=== PATIENT | female | born 1975 | race African-American/Black ===

== ENCOUNTER 2021-12-01 03:26 | Emergency (ER) | payer MEDICAID ==
[~2021-12-01] VITALS: Ht 160 cm; Wt 79.5 kg
[2021-12-01 03:51] LABS: BASO % 0.4 % (0.0-2.0); GRAN # 5.7 K/mm3 (1.4-6.5); GRAN % 75.6 % (42.2-75.2); LYMPH # 1.4 K/mm3 (1.2-3.4); LYMPH % 18.3 % (20.0-51.0); MEAN CELL VOLUME 71 fl (80.0-100.0); MEAN CORPUSCULAR HEMOGLOBIN 24 pg (27-31); MEAN CORPUSCULAR HGB CONC 33 g/dl (33.0-37.0); MEAN PLATELET VOLUME 10.4 fl (7.4-10.4); MONO # 0.4 K/mm3 (0.1-0.6); MONO % 5.4 % (1.7-9.3); PLATELET COUNT 395 K/mm3 (130-400); RED BLOOD COUNT 5.48 M/mm3 (4.10-5.30); REDCELL DISTRIBUTION WIDTH-CV 17.5 % (11.5-14.5)
[2021-12-01 04:25] LABS: ALANINE AMINOTRANSFERASE 28 U/L (0-55); ALBUMIN 3.9 gm/dL (3.5-5.0); ALCOHOL(ethanol),MEDICAL < 10 mg/dL (0-10); ALKALINE PHOSPHATASE 155 U/L (40-150); ANION GAP 21 mmol/L (7-16); AST,SGOT 23 U/L (5-34); BILIRUBIN,TOTAL 0.6 mg/dL (0.2-1.2); BLOOD UREA NITROGEN 15 mg/dL (7-19); CALCIUM 10.1 mg/dL (8.4-10.2); CARBON DIOXIDE 18 mmol/L (22-29); CHLORIDE 97 mmol/L (98-107); GLUCOSE 389 mg/dL (70-99); LIPASE 6 U/L (8-78); POTASSIUM 3.8 mmol/L (3.5-4.5); SODIUM 136 mmol/L (136-145)
[2021-12-01 04:35] LABS: CREATININE, serum 1.17 mg/dL (0.57-1.11)
[2021-12-01] MEDS ORDERED: PERCOCET 325 MG1 TA2 PO (07:29)
[2021-12-01] MEDS ORDERED: ZOFRAN ODT4 MG PO (07:29)
[2021-12-01 08:10] VITALS: BP 122/88; PULSE 113; TEMP 97.5
== END 2021-12-01 08:10 | disposition home or self-care (01) ==
LOC: COL.ER 03:26
PROVIDERS: Personal Emergency Response Attendant
DX: R19.07 Generalized intra-abdominal and pelvic swelling, mass and lump (principal); R11.10 Vomiting, unspecified; Z32.02 Encounter for pregnancy test, result negative
CPT/HCPCS: J1790; J2060; J2270; J2405; J7030; Q9967

== ENCOUNTER 2022-05-13 02:21 | Inpatient (IN) | payer MEDICAID ==
[~2022-05-13] VITALS: Wt 81.6 kg
[2022-05-13] VITALS (911 sets, daily range): BP systolic 119–145; BP diastolic 78–100; PULSE 108–122; TEMP 97.9–99; O2SAT 72–100
[~2022-05-13 02:21] MED LIST: PERCOCET 325 MG1 TA2 PO; ZOFRAN ODT4 MG PO
[2022-05-13 02:52] LABS: COLLECTION METHOD CLEAN CATCH
[2022-05-13 02:55] LABS: BASO # 0.1 K/mm3 (0.0-0.2); BASO % 0.4 % (0.0-2.0); GRAN # 10.2 K/mm3 (1.4-6.5); GRAN % 87.7 % (42.2-75.2); HEMATOCRIT 40.4 % (37.0-47.0); HEMOGLOBIN 12.8 g/dl (12.5-16.0); LYMPH % 8.7 % (20.0-51.0); MEAN CELL VOLUME 78 fl (80.0-100.0); MEAN CORPUSCULAR HEMOGLOBIN 25 pg (27-31); MEAN CORPUSCULAR HGB CONC 32 g/dl (33.0-37.0); MEAN PLATELET VOLUME 10.8 fl (7.4-10.4); MONO # 0.3 K/mm3 (0.1-0.6); MONO % 2.9 % (1.7-9.3); PLATELET COUNT 395 K/mm3 (130-400); RED BLOOD COUNT 5.17 M/mm3 (4.10-5.30); REDCELL DISTRIBUTION WIDTH-CV 17.6 % (11.5-14.5)
[2022-05-13 03:04] LABS: MUCOUS Present (NOT PRESENT); URINE APPEARANCE Hazy (CLEAR/HAZY); URINE BACTERIA Rare /hpf (NONE SEEN); URINE COLOR Yellow (YELLOW)
[2022-05-13 03:05] LABS: URINE BLOOD TRACE-LYSED (NEGATIVE); URINE GLUCOSE 2+ (NEGATIVE); URINE KETONE 4+ (NEGATIVE); URINE NITRATE Negative (NEGATIVE); URINE PROTEIN(semi-quant) Negative (NEGATIVE); URINE UROBILINOGEN 0.2 (NEGATIVE)
[2022-05-13 03:16] LABS: ACETONE,SERUM MODERATE; ALANINE AMINOTRANSFERASE 21 U/L (0-55); ALBUMIN 4.2 gm/dL (3.5-5.0); ALKALINE PHOSPHATASE 167 U/L (40-150); ANION GAP 29 mmol/L (7-16); AST,SGOT 16 U/L (5-34); BILIRUBIN,TOTAL 0.4 mg/dL (0.2-1.2); BLOOD UREA NITROGEN 17 mg/dL (7-19); CALCIUM 10.8 mg/dL (8.4-10.2); CHLORIDE 94 mmol/L (98-107); CREATININE, serum 1.49 mg/dL (0.57-1.11); POTASSIUM 4.8 mmol/L (3.5-4.5); SODIUM 133 mmol/L (136-145); TOTAL PROTEIN 9.6 gm/dL (6.2-8.1)
[2022-05-13 03:17] LABS: CARBON DIOXIDE 10 mmol/L (22-29); GLUCOSE 604 mg/dL (70-99)
[2022-05-13 04:02] LABS: LIPASE 6 U/L (8-78)
[2022-05-13] MEDS ORDERED: NORCO 325 MG-51 TAB PO (05:23)
[2022-05-13] MEDS ORDERED: ASPIRIN 81M81 MG/TA2 PO (05:23)
[2022-05-13] MEDS ORDERED: MASON NATURAL2000 IU PO (05:23)
[2022-05-13] MEDS ORDERED: DULOXETINE HCL40 MG PO (05:24)
[2022-05-13] MEDS ORDERED: PRINIVIL5 MG PO (05:24)
[2022-05-13] MEDS ORDERED: PAMELOR75 MG PO (05:24)
[2022-05-13] MEDS ORDERED: ZOCOR 40MG40 MG PO (05:24)
[2022-05-13] MEDS ORDERED: LYRICA200 MG PO (05:24)
[2022-05-13] MEDS ORDERED: COMPLETE MULTI1 TAB PO (05:25)
[2022-05-13] MEDS ORDERED: HUMALOG100 U/ML SQ (05:26)
[2022-05-13] MEDS ORDERED: LEVEMIR FLEX100 U/ML SQ (05:26)
[2022-05-13] MEDS ORDERED: LUNESTA3 MG PO (05:29)
--- NOTE | 2022-05-13 06:00 | NUR ---
PT ARRIVED FROM ER VIA STRETCHER. AMBULATED TO ICU BED, CONNECTED TO MONITORING. INSULIN CURRENTLY INFUSING AT A RATE OF 3UN/HR FROM ER, AND NS C 20KCL AT 250ML/HR. PT AAOX4, C/O HEADACHE AND ASKING FOR LIGHTS TO BE DIMMED. REPORTS NAUSEA, WILL CALL PHARMACY FOR PHENERGAN PER ORDER. ORIENTED TO ROOM AND CALL LIGHT, ASKED TO CALL RN BEFORE GETTING OOB. WILL CONTINUE TO MONITOR.
[2022-05-13 06:18] LABS: CALCIUM 9.8 mg/dL (8.4-10.2); CREATININE, serum 1.19 mg/dL (0.57-1.11); MAGNESIUM 1.9 mg/dL (1.6-2.6); PHOSPHOROUS 3.7 mg/dL (2.3-4.7); POTASSIUM 4.5 mmol/L (3.5-4.5)
[2022-05-13 08:16] LABS: CREATININE, serum 1.07 mg/dL (0.57-1.11); POTASSIUM 5.2 mmol/L (3.5-4.5)
[2022-05-13 09:59] LABS: CALCIUM 8.7 mg/dL (8.4-10.2); CREATININE, serum 0.93 mg/dL (0.57-1.11); POTASSIUM 4.7 mmol/L (3.5-4.5)
--- NOTE | 2022-05-13 11:04 | NUR ---
NOTIFIED HOSPITALIST OF PT FLUID ORDERS W/ K AND PT HIGH K LEVELS. ORDER FOR D5 1/2 NS GIVEN. PT ALSO COMPLAINS OF HEARTBURN. ORDER FOR MAALOX. CONSULT TO [facility] CALLED.
[2022-05-13 11:50] LABS: CALCIUM 8.6 mg/dL (8.4-10.2); CREATININE, serum 0.88 mg/dL (0.57-1.11); POTASSIUM 4.4 mmol/L (3.5-4.5)
--- NOTE | 2022-05-13 13:40 | NUR ---
Initial visit; Patient and her thanked [employer]immer for looking in on [place] and offering encouragement, comfort and prayer. Patient thanked [employer] for visit and for keeping her in her prayers. [employer] Trimmer will follow-up while patient is here.
[2022-05-13 14:14] LABS: CALCIUM 8.5 mg/dL (8.4-10.2); CREATININE, serum 0.84 mg/dL (0.57-1.11); POTASSIUM 3.9 mmol/L (3.5-4.5)
[2022-05-13 15:50] LABS: CALCIUM 8.7 mg/dL (8.4-10.2); CREATININE, serum 0.83 mg/dL (0.57-1.11); POTASSIUM 3.6 mmol/L (3.5-4.5)
--- NOTE | 2022-05-13 16:40 | NUR ---
forest nursery worker met with patient and her fiance to discuss discharge planning. Patient states she lives with her fiance and will return home upon discharge. Patient states her primary care provider is Dr Ortiz. Patient states her [employer] sensor is costing her $38.00 every two weeks and she cannot afford this. Worker will explore options for financial assistance for sensor. Patient stated that she does not have advance directives and is interested in seeing the documents which elementary school social worker will provide. Patient states that she is in the process of applying for disability. Patient currently has [email or web address].
[2022-05-13 20:36] LABS: CALCIUM 7.6 mg/dL (8.4-10.2); CREATININE, serum 0.71 mg/dL (0.57-1.11); MAGNESIUM 1.5 mg/dL (1.6-2.6); PHOSPHOROUS 1.3 mg/dL (2.3-4.7); POTASSIUM 4.1 mmol/L (3.5-4.5)
--- NOTE | 2022-05-13 22:00 | NUR ---
BEDSIDE SHIFT REPORT RECEIVED FROM [facility]. PT CURRENTLY RESTING IN BED. NO CURRENT C/O PAIN OR DISCOMFORT. VSS. NO ACUTE CHANGES NOTED AT THIS TIME
[2022-05-14] VITALS (801 sets, daily range): BP systolic 101–162; BP diastolic 53–96; PULSE 92–121; TEMP 97.5–98.9; O2SAT 93–100
--- NOTE | 2022-05-14 07:00 | NUR ---
PT RESTING IN BED. PT HAS NS RUNNING. PT'S VSS. PT HAS CALL LIGHT WITHIN REACH AND INSTRUCTED TO CALL WITH ALL NEEDS. PT INSTRUCTED ON NPO STATUS FOR EGD LATER TODAY.
[2022-05-14 08:04] LABS: BASO % 0.4 % (0.0-2.0); EOS % 0.9 % (0.0-4.0); GRAN % 65.1 % (42.2-75.2); HEMATOCRIT 31.9 % (37.0-47.0); HEMOGLOBIN 10.3 g/dl (12.5-16.0); LYMPH # 1.2 K/mm3 (1.2-3.4); LYMPH % 24.8 % (20.0-51.0); MEAN CELL VOLUME 75 fl (80.0-100.0); MEAN CORPUSCULAR HEMOGLOBIN 24 pg (27-31); MEAN CORPUSCULAR HGB CONC 32 g/dl (33.0-37.0); MEAN PLATELET VOLUME 10.1 fl (7.4-10.4); MONO # 0.4 K/mm3 (0.1-0.6); MONO % 8.8 % (1.7-9.3); PLATELET COUNT 254 K/mm3 (130-400); RED BLOOD COUNT 4.23 M/mm3 (4.10-5.30); REDCELL DISTRIBUTION WIDTH-CV 16.5 % (11.5-14.5)
[2022-05-14 08:17] LABS: CALCIUM 8.3 mg/dL (8.4-10.2); CREATININE, serum 0.69 mg/dL (0.57-1.11); MAGNESIUM 1.7 mg/dL (1.6-2.6); POTASSIUM 3.7 mmol/L (3.5-4.5)
--- NOTE | 2022-05-14 09:46 | NUR ---
REFERAL PAPERWORK FAXED TO [phone].
--- NOTE | 2022-05-14 14:45 | NUR ---
Pt taken down to endoscopy.
--- NOTE | 2022-05-14 15:15 | NUR ---
REPORT CALLED TO [facility]. ALL QUESITONS ANSWERED. BELONGINGS MOVED TO 323. ENDO CALLED TO TRANSFER PT.
--- NOTE | 2022-05-14 15:30 | NUR ---
PATIENT ARRIVED FROM PACU AFTER EGD. AWAKE ALERT AND ORIENTED. VITALS STABLE.
--- NOTE | 2022-05-14 16:15 | NUR ---
PATIENT GAG REFLEX INTACT, TOELRATING PO INTAKE AT THIS TIME.
--- NOTE | 2022-05-14 20:30 | NUR ---
PT WANTS TO SHOWER, WRAPPED PICC LINE WITH BAG AND FOAM TAPE.
--- NOTE | 2022-05-14 21:22 | NUR ---
PT REPORTS NAUSEA, MEDICATED WITH PHENERGAN IVPB AT THIS TIME. PT HAS PICC TO POOJA, FLUSHES WELL, IVF INFUSING WITHOUT PROBLEM. IS ALERT AND ORIENTED X4. HAS DINNER TRAY THAT SHE IS TRYING TO EAT.
--- NOTE | 2022-05-14 22:04 | NUR ---
PT TAKES HS MEDS INCLUDING NORCO FOR ABD PAIN.
--- NOTE | 2022-05-15 00:07 | NUR ---
MARIANA GIVEN FOR SLEEP. PT ON HER PHONE.
--- NOTE | 2022-05-15 00:43 | NUR ---
PT ATE A SANDWICH, NOW ASKING FOR ZOFRAN. MEDICATED WITH ZOFRAN 4MG IVP AT THIS TIME. PT STILL ON HER PHONE.
[2022-05-15 03:41] VITALS: BP 124/85; PULSE 97
--- NOTE | 2022-05-15 04:00 | NUR ---
PT RESTING QUIETLY. PQ=[id number], 6UNITS NOVOLOG GIVEN.
[2022-05-15 06:56] LABS: CALCIUM 8.2 mg/dL (8.4-10.2); CREATININE, serum 0.7 mg/dL (0.57-1.11); MAGNESIUM 1.7 mg/dL (1.6-2.6); POTASSIUM 3.2 mmol/L (3.5-4.5)
--- NOTE | 2022-05-15 07:54 | NUR ---
PT RESTING, NO NEEDS AT THIS TIME
[2022-05-15 08:00] VITALS: BP 109/52; PULSE 101; TEMP 98.4
[2022-05-15 11:40] VITALS: BP 118/68; PULSE 105; TEMP 98.5
[2022-05-15] MEDS ORDERED: ZOFRAN ODT4 MG PO (11:57)
[2022-05-15] MEDS ORDERED: PROTONIX 40MG T40 MG PO (11:57)
--- NOTE | 2022-05-15 13:35 | NUR ---
DC'D RIGHT UPPER ARM PICC PER ORDERS, SEE CHARTING. PRIMARY NURSE NOTIFIED.
--- NOTE | 2022-05-15 14:20 | NUR ---
DISCHARGED DISCUSSED WITH PT, ALL QUESTIONS AND CONCERNS WERE ADDRESSED, PT WALKED OUT WITH PCT AND FAMILY WITH ALL HER BELONGINGS TO PRIVATE VEHICLE HOME
== END 2022-05-15 14:26 | disposition home or self-care (01) | DRG 638 ==
LOC: COL.ER 02:21 → ICU 04:38 → SURG 05-14 16:54
PROVIDERS: Emergency Medicine; Nurse Practitioner Family; ADMIT Internal Medicine
PROC: 02HV33Z Insertion of Infusion Device into Superior Vena Cava, Percutaneous Approach (ICD-10-PCS; principal; 2022-05-13)
PROC: 0DB38ZX Excision of Lower Esophagus, Via Natural or Artificial Opening Endoscopic, Diagnostic (ICD-10-PCS; 2022-05-14)
PROC: 0DB78ZX Excision of Stomach, Pylorus, Via Natural or Artificial Opening Endoscopic, Diagnostic (ICD-10-PCS; 2022-05-14)
DX: E10.10 Type 1 diabetes mellitus with ketoacidosis without coma (principal); N17.9 Acute kidney failure, unspecified; K86.9 Disease of pancreas, unspecified; I10 Essential (primary) hypertension; E78.5 Hyperlipidemia, unspecified; E10.40 Type 1 diabetes mellitus with diabetic neuropathy, unspecified; G89.29 Other chronic pain; D72.829 Elevated white blood cell count, unspecified; G47.00 Insomnia, unspecified; R13.10 Dysphagia, unspecified; K59.00 Constipation, unspecified; Z79.82 Long term (current) use of aspirin; Z79.4 Long term (current) use of insulin; Z72.89 Other problems related to lifestyle; Z23 Encounter for immunization
CPT/HCPCS: C1751; J1644; J1815; J2270; J2405; J2550; J2704; J3010; J3480; J7030; Q9967

== ENCOUNTER 2023-01-05 21:07 | Emergency (ER) | payer MEDICAID ==
[~2023-01-05] VITALS: Ht 162.6 cm; Wt 73.6 kg
[~2023-01-05 21:07] MED LIST changes: +ASPIRIN 81M81 MG/TA2 PO; +COMPLETE MULTI1 TAB PO; +DULOXETINE HCL40 MG PO; +HUMALOG100 U/ML SQ; +LEVEMIR FLEX100 U/ML SQ; +LUNESTA3 MG PO; +LYRICA200 MG PO; +MASON NATURAL2000 IU PO; +NORCO 325 MG-51 TAB PO; +PAMELOR75 MG PO; +PRINIVIL5 MG PO; +PROTONIX 40MG T40 MG PO; +ZOCOR 40MG40 MG PO
[2023-01-05 21:27] VITALS: TEMP 98.5
[2023-01-05 22:00] LABS: COLLECTION METHOD CLEAN CATCH
[2023-01-05 22:02] LABS: URINE APPEARANCE Cloudy (CLEAR/HAZY); URINE COLOR Yellow (YELLOW)
[2023-01-05 22:03] LABS: BASO % 0.6 % (0.0-2.0); EOS # 0.3 K/mm3 (0.0-0.7); EOS % 4.2 % (0.0-4.0); GRAN # 4.6 K/mm3 (1.4-6.5); GRAN % 63.2 % (42.2-75.2); LYMPH # 1.8 K/mm3 (1.2-3.4); LYMPH % 24.8 % (20.0-51.0); MEAN CELL VOLUME 74 fl (80.0-100.0); MEAN CORPUSCULAR HGB CONC 32 g/dl (33.0-37.0); MEAN PLATELET VOLUME 10.5 fl (7.4-10.4); MONO # 0.5 K/mm3 (0.1-0.6); MONO % 6.9 % (1.7-9.3); PLATELET COUNT 492 K/mm3 (130-400); RED BLOOD COUNT 4.01 M/mm3 (4.10-5.30); REDCELL DISTRIBUTION WIDTH-CV 17.6 % (11.5-14.5)
[2023-01-05 22:03] LABS: URINE BLOOD Negative (NEGATIVE); URINE GLUCOSE Negative (NEGATIVE); URINE KETONE Negative (NEGATIVE); URINE NITRATE Negative (NEGATIVE); URINE PROTEIN(semi-quant) Negative (NEGATIVE); URINE UROBILINOGEN 0.2 E.U/dL (0.2-1.0)
[2023-01-05 22:05] LABS: MUCOUS Present (NOT PRESENT); URINE BACTERIA Rare /hpf (NONE SEEN); URINE RBC 0-2 /hpf (0-2)
[2023-01-05 22:07] LABS: HEMATOCRIT 29.6 % (37.0-47.0); HEMOGLOBIN 9.5 g/dl (12.5-16.0); MEAN CORPUSCULAR HEMOGLOBIN 24 pg (27-31)
[2023-01-05 22:21] LABS: ALBUMIN 3.4 gm/dL (3.5-5.0); BILIRUBIN,TOTAL 0.2 mg/dL (0.2-1.2); C-REACTIVE PROTEIN 0.2 mg/dL (0.00-0.50); CALCIUM 9.2 mg/dL (8.4-10.2); CREATININE, serum 0.88 mg/dL (0.57-1.11); POTASSIUM 4.1 mmol/L (3.5-4.5); TOTAL PROTEIN 6.9 gm/dL (6.2-8.1)
[2023-01-05] MEDS ORDERED: BACTRIM DS 8001 TAB PO (22:41)
[2023-01-05 22:55] VITALS: BP 117/96; PULSE 93
== END 2023-01-05 22:58 | disposition home or self-care (01) ==
LOC: COL.ER 21:07
PROVIDERS: Family Medicine
DX: K59.09 Other constipation (principal); N39.0 Urinary tract infection, site not specified; M79.605 Pain in left leg; G89.29 Other chronic pain
CPT/HCPCS: J7120

== ENCOUNTER → 2023-01-27 | Outpatient (CLI) | payer MEDICAID ==
[~2023-01-27] MED LIST changes: +BACTRIM DS 8001 TAB PO
== END ==
LOC: DIA.ED
DX: E10.40 Type 1 diabetes mellitus with diabetic neuropathy, unspecified (principal)
CPT/HCPCS: G0108

== ENCOUNTER 2023-07-11 02:08 | Emergency (ER) | payer MEDICAID ==
[~2023-07-11] VITALS: Ht 162.6 cm; Wt 78.2 kg
[~2023-07-11 02:08] MED LIST changes: -ASPIRIN 81M81 MG/TA2 PO; +ASPIRIN E.C. 8181 MG PO; +CREON 36000 PO; +DIFLUCAN150 MG PO; +FLEXERIL 1010 MG/TAB PO; +FOLIC ACID 11 MG/TA1 PO; +INSULIN LI100 UNIT/2 SQ; +LEVEMIR100 U/ML SQ; +LIPITOR 40MG TA40 MG PO; +MIRALAX510G PO; +REGLAN 5MG T5 MG/TAB PO; +TEGRETOL 2200 MG/TA1 PO; +VOLTAREN GEL 1%1 TU TP
[2023-07-11 02:13] VITALS: TEMP 97.5
[2023-07-11 02:39] LABS: BASO # 0.1 K/mm3 (0.0-0.2); BASO % 0.7 % (0.0-2.0); EOS # 0.1 K/mm3 (0.0-0.7); EOS % 1.6 % (0.0-4.0); GRAN # 4.1 K/mm3 (1.4-6.5); GRAN % 53.2 % (42.2-75.2); HEMOGLOBIN 10.9 g/dl (12.5-16.0); LYMPH # 2.8 K/mm3 (1.2-3.4); LYMPH % 37.1 % (20.0-51.0); MEAN CELL VOLUME 74 fl (80.0-100.0); MEAN CORPUSCULAR HEMOGLOBIN 24 pg (27-31); MEAN CORPUSCULAR HGB CONC 33 g/dl (33.0-37.0); MEAN PLATELET VOLUME 10.9 fl (7.4-10.4); MONO # 0.6 K/mm3 (0.1-0.6); MONO % 7.3 % (1.7-9.3); PLATELET COUNT 549 K/mm3 (130-400); RED BLOOD COUNT 4.48 M/mm3 (4.10-5.30); REDCELL DISTRIBUTION WIDTH-CV 18.7 % (11.5-14.5)
[2023-07-11 02:57] LABS: ALANINE AMINOTRANSFERASE 16 U/L (0-55); ALBUMIN 3.7 gm/dL (3.5-5.0); ALKALINE PHOSPHATASE 150 U/L (40-150); ANION GAP 14 mmol/L (7-16); AST,SGOT 20 U/L (5-34); BILIRUBIN,TOTAL 0.2 mg/dL (0.2-1.2); BLOOD UREA NITROGEN 28 mg/dL (7-19); CALCIUM 9.2 mg/dL (8.4-10.2); CARBON DIOXIDE 22 mmol/L (22-29); CHLORIDE 98 mmol/L (98-107); CREATININE, serum 1.72 mg/dL (0.57-1.11); GLUCOSE 323 mg/dL (70-99); SODIUM 134 mmol/L (136-145); TOTAL PROTEIN 7.9 gm/dL (6.2-8.1)
[2023-07-11 03:05] LABS: ACETONE,SERUM NEGATIVE
[2023-07-11 04:15] VITALS: BP 103/81; PULSE 89
== END 2023-07-11 04:32 | disposition left against medical advice (07) ==
LOC: COL.ER 02:08
PROVIDERS: Emergency Medicine
DX: E11.65 Type 2 diabetes mellitus with hyperglycemia (principal); N17.9 Acute kidney failure, unspecified; E87.6 Hypokalemia; I95.9 Hypotension, unspecified; I10 Essential (primary) hypertension; E11.40 Type 2 diabetes mellitus with diabetic neuropathy, unspecified; Z79.4 Long term (current) use of insulin
CPT/HCPCS: J1815; J7030

== ENCOUNTER 2023-07-12 09:22 | Emergency (ER) | payer MEDICAID ==
[~2023-07-12] VITALS: Ht 162.6 cm; Wt 78.2 kg
[2023-07-12 09:40] VITALS: TEMP 98.1
[2023-07-12 10:19] LABS: BASO % 0.6 % (0.0-2.0); EOS # 0.1 K/mm3 (0.0-0.7); EOS % 2.5 % (0.0-4.0); GRAN # 2.7 K/mm3 (1.4-6.5); GRAN % 50.5 % (42.2-75.2); HEMOGLOBIN 10.2 g/dl (12.5-16.0); LYMPH # 1.9 K/mm3 (1.2-3.4); LYMPH % 35.4 % (20.0-51.0); MEAN CELL VOLUME 76 fl (80.0-100.0); MEAN CORPUSCULAR HEMOGLOBIN 24 pg (27-31); MEAN CORPUSCULAR HGB CONC 32 g/dl (33.0-37.0); MEAN PLATELET VOLUME 11.1 fl (7.4-10.4); MONO # 0.6 K/mm3 (0.1-0.6); MONO % 10.8 % (1.7-9.3); PLATELET COUNT 505 K/mm3 (130-400); RED BLOOD COUNT 4.22 M/mm3 (4.10-5.30); REDCELL DISTRIBUTION WIDTH-CV 19.8 % (11.5-14.5)
[2023-07-12 10:22] LABS: HEMATOCRIT 31.9 % (37.0-47.0)
[2023-07-12 10:36] LABS: ALBUMIN 3.4 gm/dL (3.5-5.0); BILIRUBIN,TOTAL 0.3 mg/dL (0.2-1.2); CALCIUM 9.7 mg/dL (8.4-10.2); CREATININE, serum 0.81 mg/dL (0.57-1.11); TOTAL PROTEIN 7.3 gm/dL (6.2-8.1)
[2023-07-12 12:07] VITALS: BP 135/95; PULSE 100
== END 2023-07-12 11:46 | disposition home or self-care (01) ==
LOC: COL.ER 09:22
PROVIDERS: Emergency Medicine
DX: E10.65 Type 1 diabetes mellitus with hyperglycemia (principal); E10.40 Type 1 diabetes mellitus with diabetic neuropathy, unspecified
CPT/HCPCS: J7120